=== PATIENT | male | born 1955 | race Two or more races ===

== ENCOUNTER → 2024-12-20 | Outpatient (CLI) | payer MEDICARE, SELFPAY ==
[2024-12-20 11:50] LABS: Basophils # (Auto) 0.1 Thou/mm3 (0.0-0.2); Basophils % (Auto) 1 % (0-2.5); Eosinophils # (Auto) 0.2 Thou/mm3 (0.0-0.5); Eosinophils % (Auto) 4 % (0-10); Hematocrit 47.8 % (41.0-53.0); Hemoglobin 16.7 g/dL (13.5-16.0); Immature Granulocytes Auto 0.01 Thou/mm3 (0.00-0.00); Lymphocytes # (Auto) 0.7 Thou/mm3 (1.0-4.8); Lymphocytes % (Auto) 17 % (10-50); Mean Corpuscular HGB Conc 34.9 g/dl (31.0-37.0); Mean Corpuscular Hemoglobin 34.0 pg (25.0-35.0); Mean Corpuscular Volume 97 fL (80-100); Monocytes # (Auto) 0.4 Thou/mm3 (0.0-0.8); Monocytes % (Auto) 10 % (0-12); Neutrophils # (Auto) 2.9 Thou/mm3 (1.8-7.7); Neutrophils % (Auto) 68 % (37-80); Nucleated Red Blood Cell # 0.00 Thou/mm3 (0.00-0.00); Nucleated Red Blood Cell % 0 /100 WBC (0); Platelet Count 96 Thou/mm3 (140-440); RDW Standard Deviation 47.2 fL (35.1-43.9); Red Blood Count 4.91 Miln/mm3 (4.50-5.90); White Blood Count 4.3 Thou/mm3 (3.8-10.6)
[2024-12-20 11:55] LABS: Glucose Estimated Average 103 mg/dL (80-131); Hemoglobin A1C 5.2 % Hgb (4.8-6.0)
[2024-12-20 11:59] LABS: Prostate Specific Antigen 1.15 ng/mL (0-4.00)
[2024-12-20 12:11] LABS: Alanine Aminotransferase 37 U/L (10-49); Albumin, Serum 4.5 gm/dL (3.4-4.8); Albumin/Globulin Ratio 1.6 (1.2-2.2); Alkaline Phosphatase 224 U/L (46-116); Anion Gap 8 (7-16); Aspartate Amino Transferase 38 U/L (0-34); BUN/Creatinine Ratio 12 Ratio (12-20); Bilirubin,Total 1.8 mg/dL (0.3-1.2); Blood Urea Nitrogen 13 mg/dL (9-23); Calcium 9.3 mg/dL (8.3-10.6); Calcium (Corrected) 9.3 mg/dL (8.5-10.1); Carbon Dioxide 25.1 mMol/L (20.0-31.0); Cardiac Risk Estimate 3.1 RATIO (4.0-6.7); Chloride 107 mMol/L (98-107); Cholesterol 173 mg/dL (132-200); Creatinine (Component) 1.1 mg/dL (0.6-1.3); Globulin 2.9 gm/dL (2.3-3.5); Glucose 110 mg/dL (74-106); HDL Cholesterol 56 mg/dL (40-60); LDL Cholesterol,Calculated 95 mg/dL (0-130); Osmolality,Calculated 280 (275-295); Potassium 4.1 mMol/L (3.4-5.1); Sodium 140 mMol/L (136-145); Thyroid Stimulating Hormone 2.32 uIU/mL (0.55-4.78); Total Protein 7.4 gm/dL (5.7-8.2); Triglycerides 109 mg/dL (30-150); eGFR > 60 See Note
== END | disposition home or self-care (01) ==
LOC: COPL 10:02
PROVIDERS: PCP Internal Medicine
DX: I10 Essential (primary) hypertension (principal); Z12.5 Encounter for screening for malignant neoplasm of prostate; Z13.6 Encounter for screening for cardiovascular disorders; Z79.899 Other long term (current) drug therapy
CPT/HCPCS: 36415; 80053; 80061; 83036; 84153; 84443; 85025

== ENCOUNTER → 2025-02-02 | Outpatient (CLI) | payer MEDICARE, SELFPAY ==
--- NOTE | 2025-02-02 | XR_ITS ---
Examination: Sinus series 3 views TECHNIQUE: Nabil Ferrera lateral sinus series 3 views Date and time: February 02, 2025 1139 hours INDICATIONS: Sinus pressure and pain headaches dizziness 3 weeks. FINDINGS: Significant opacification frontal ethmoid and maxillary antral air cells No fluid levels No cortical bone destruction IMPRESSION: Significant chronic sinusitis
== END | disposition home or self-care (01) ==
DX: J32.8 Other chronic sinusitis (principal)
CPT/HCPCS: 70220

== ENCOUNTER → 2025-02-19 | Outpatient (CLI) | payer MEDICARE, SELFPAY ==
--- NOTE | 2025-02-19 15:00 | XR_ITS ---
Examination: CT chest, without intravenous contrast. Sagittal and coronal 2-D reconstructions. Exam date and time: February 19, 2025 1459 hours, comparison October 01, 2022 INDICATIONS: Smoking history 30 years, 11 mm nodule right middle lobe on CT chest October 01, 2022 CTDI:vol (mGy) 9.65 DLP: (mGycm) 358 Technique: Multiple 3.0 mm axial sections of the chest to been obtained. Bone and lung density settings are obtained. Sagittal and coronal 2-D reconstructions have been obtained. Low dose protocols were performed. One or more of the following dose reduction techniques were used; automated exposure control, adjustment of the mA and/or KV according to patient size, use of iterative reconstruction technique. Findings: No thoracic aorta aneurysm dilatation Pulmonary artery segments are not enlarged Heavy calcification left anterior descending coronary artery. No paratracheal tracheobronchial or bronchopulmonary adenopathy. 2 mm pulmonary nodule posterior left lung image 147 3 mm pulmonary nodule right upper lobe image 205 No pneumonia or pulmonary edema Mild fluid collection peripheral to the right lobe the liver axial image 149 with liver cysts Contracted gallbladder with gallstones Liver nodular in contour No pancreatic mass Mild left hydronephrosis IMPRESSION: Noncalcified pulmonary nodules as above, recommend 6 month follow-up CT chest without contrast Cirrhosis, fluid collection peripheral to the right lobe the liver, cholelithiasis, recommend hepatobiliary sonography follow-up
== END | disposition home or self-care (01) ==
DX: R91.8 Other nonspecific abnormal finding of lung field (principal); K74.60 Unspecified cirrhosis of liver; K80.20 Calculus of gallbladder without cholecystitis without obstruction
CPT/HCPCS: 71250

== ENCOUNTER → 2025-04-26 | Outpatient (CLI) | payer MEDICARE, SELFPAY ==
--- NOTE | 2025-04-26 10:00 | XR_ITS ---
Examination: Abdomen sonogram, complete Date and time of exam: April 26, 2025, 1003 hours INDICATIONS: History cholelithiasis. Technique: Multiple real-time grayscale transabdominal sonographic images of the abdomen have been obtained. Findings: Multiple gallstones Gallbladder wall 0.3 cm no edema Common bile duct 0.3 cm Pancreatic head 1.5 cm Aorta not enlarged Liver 10.6 cm irregular contour right lobe liver lesion, cyst 3.3 cm Normal hepatopetal portal venous flow Patent IVC Right kidney 11.0 cm renal cortex 1.4 cm Left kidney 11.3 cm renal cortex 1.5 cm Moderate renal scar formation No hydronephrosis Spleen 10.6 cm IMPRESSION: Cholelithiasis, negative for cholecystitis
== END | disposition home or self-care (01) ==
PROVIDERS: PCP Internal Medicine
DX: K80.20 Calculus of gallbladder without cholecystitis without obstruction (principal)
CPT/HCPCS: 76700